=== PATIENT | male | born 1955 | race Caucasian/White ===

== ENCOUNTER 2021-09-13 12:33 | Emergency (ER) | payer MEDICARE, BC ==
[~2021-09-13] VITALS: Ht 185.4 cm; Wt 114.3 kg
[~2021-09-13 12:33] MED LIST: AMLO-212 PO; IRBE1TAB41 PO; PANT40TA2 PO
--- NOTE | 2021-09-13 13:07 | NUR ---
Dr Aaron at the bedside for MSE.
[2021-09-13] MEDS ORDERED: TDAP DIPH,PERTUSS,TET VAC/PF 0.5 ML DISP.SYRIN IM ONE ×2 (13:15→13:17)
[2021-09-13] MEDS ORDERED: NEOMY/BACITRA/POLYMYXIN B OINT UD PACKET TP ONE ×2 (13:17→13:30)
[2021-09-13] MEDS ORDERED: CEPH500C2 PO (13:21)
[2021-09-13] MEDS ORDERED: CEphaleXIN 500 MG CAPSULE ONE (13:21)
[2021-09-13] MEDS ORDERED: CEphaleXIN 500 MG CAPSULE PO ONE (13:30)
[2021-09-13 13:46] VITALS: BP 133/68
--- NOTE | 2021-09-13 13:46 | NUR ---
Patient discharged to home in stable condition. Written and verbal after care instructions given. Patient verbalizes understanding of instructions. Stressed follow up or return to ER for worsening s/s.
== END 2021-09-13 13:47 | disposition home or self-care (01) ==
LOC: ER 12:33
DX: S61.211A Laceration without foreign body of left index finger without damage to nail, initial encounter (principal); X58.XXXA Exposure to other specified factors, initial encounter; Y92.89 Other specified places as the place of occurrence of the external cause; I10 Essential (primary) hypertension; K21.9 Gastro-esophageal reflux disease without esophagitis
CPT/HCPCS: 90715; A4663; J3490